=== PATIENT | male | born 1955 | race African-American/Black ===

== ENCOUNTER 2018-11-26 11:25 | Inpatient (IN) | payer OTHER ==
[2018-11-26 13:08] VITALS: BMI 22.9
--- NOTE | 2018-11-26 14:59 | HP ---
CIWA Score - Admission Criteria [facility] Guidelines: Admission for Medically Managed Detox: Requires at least one of the followin. CIWA greater than 12 2. Seizures within the past 24 hours 3. Delirium tremens within the past 24 hours 4. Hallucinations within the past 24 hours 5. Acute intervention needed for co occurring medical disorder 6. Acute intervention needed for co occurring psychiatric disorder 7. Severe withdrawal that cannot be handled at a lower level of care (continued vomiting, continued diarrhea, abnormal vital signs) requiring intravenous medication and/or fluids 8. Admission ROS S - HPI Chief Complaint: i need help to stop using opiate,on methadone maintenance 110mgs/day,last [id number]/01/19 Allergies/Adverse Reactions: Allergies Allergy/AdvReac Type Severity Reaction Status Date / Time No Known Allergies Allergy Verified 11/26/18 13:10 History of Present Illness: this 63 years old male with heroin dependence,mmtp 110mgs/day,last medicated 08/08,alco using marijuana patient has drug overdose on seen at [facility] has been trying to get help at [facility] and [facility] for fast 2 o3 days history of hypertension,old cva,surgery of both neck hiv since 1983 weight loss nicotine dependence 1/2 pack/day, anxiety,depression,insomnia for rehab - Ebola screening Have you traveled outside of the country in the last 21 days: No (N) Have you had contact with anyone from an Ebola affected area: No Do you have a fever: No - Review of Systems Constitutional: Malaise, Changes in sleep, Weakness, Unintentional Wgt. Loss EENT: reports: No Symptoms Reported Respiratory: reports: No Symptoms reported Cardiac: reports: No Symptoms Reported GI: reports: No Symptoms Reported : reports: No Symptoms Reported Musculoskeletal: reports: No Symptoms Reported Integumentary: reports: No Symptoms Reported Neuro: reports: No Symptoms reported Endocrine: reports: No Symptoms Reported Hematology: reports: Other (hiv) Psychiatric: reports: No Sypmtoms Reported, Anxious, Depressed, other (insomnia) Other Systems: Reviewed and Negative Patient History - Patient Medical History Hx Anemia: No Hx Asthma: No Hx Chronic Obstructive Pulmonary Disease (COPD): No Hx Cancer: No Hx Cardiac Disorders: No Hx Congestive Heart Failure: No Hx Hypertension: Yes (non compliance) Hx Hypercholesterolemia: Yes (non compliance) Hx Pacemaker: No HX Cerebrovascular Accident: Yes (could not recall how long) Hx Seizures: No Hx Dementia: No Hx Diabetes: No Hx Gastrointestinal Disorders: No Hx Liver Disease: No Hx Genitourinary Disorders: No Hx Sexually Transmitted Disorders: No Hx Renal Disease (ESRD): No Hx Thyroid Disease: No Hx Human Immunodeficiency Virus (HIV): Yes (adrian 1983) Hx Hepatitis C: No Hx Depression: Yes (anxiety) Hx Suicide Attempt: Yes (overdose 30 years ago) Hx Bipolar Disorder: No Hx Schizophrenia: No Other Medical History: no suicidal,no homicidal - Patient Surgical History Past Surgical History: Yes Other Surgical History: removal of masses of neck 23 years ago was told benign - PPD History Previous Implant?: Yes Documented Results: Negative w/o proof Implanted On Prior [facility] Admission?: No PPD to be Administered?: Yes - Smoking Cessation Smoking history: Current every day smoker Have you smoked in the past 12 months: Yes Aproximately how many cigarettes per day: 10 Hx Chewing Tobacco Use: No Initiated information on smoking cessation: Yes 'Breaking Loose' booklet given: 11/26/18 - Substance & Tx. History Hx Alcohol Use: Yes Hx Substance Use: Yes Substance Use Type: Alcohol, Heroin, Marijuana Hx Substance Use Treatment: Yes ([facility] 11/06) - Substances abused Heroin Substance route: Injection Frequency: 1-3 times last 30 days Amount used: 1 bag Age of first use: 33 Date of last use: 11/25/18 Alcohol Substance route: Oral Frequency: 1-2 times per week Amount used: 1/2 pint of vodaka/2 cans 12 ozs of beer Age of first use: 21 Date of last use: 11/18/18 Marijuana/Hashish Substance route: Smoking Frequency: 1-3 times last 30 days Amount used: 5$ Age of first use: 18 Date of last use: 11/18/18 Family Disease History - Family Disease History Family Disease History: Other: Father (no contact), Mother (alchol,dsa) Admission Physical Exam S - Vital Signs Vital Signs: Vital Signs - 24 hr 11/26/18 13:01 Temperature 97.3 F L Pulse Rate 67 Respiratory 19 Rate Blood Pressure 114/72 - Physical General Appearance: Yes: Within Normal Limits HEENTM: Yes: Normal ENT Inspection, RASHID, Pharynx Normal, Other (scar both necks ) Respiratory: Yes: Lungs Clear, Normal Breath Sounds, No Respiratory Distress Neck: Yes: Within Normal Limits, Supple, Trachea in good position Breast: Yes: Within Normal Limits Cardiology: Yes: Within Normal Limits, Regular Rhythm, Regular Rate, S1, S2 Abdominal: Yes: Within Normal Limits, Normal Bowel Sounds, Non Tender, Soft Genitourinary: Yes: Within Normal Limits Back: Yes: Within Normal Limits Musculoskeletal: Yes: Muscle Pain Extremities: Yes: Within Normal Limits 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 intact, Fully Oriented, Alert, Motor Strength 5/5 Integumentary: Yes: Within Normal Limits Lymphatic: Yes: Within Normal Limits - Diagnostic (1) Heroin dependence Current Visit: Yes Status: Acute (2) Alcohol abuse Current Visit: Yes Status: Acute (3) Cannabis abuse Current Visit: Yes Status: Acute (4) Methadone maintenance therapy patient Current Visit: Yes Status: Acute (5) Essential hypertension Current Visit: Yes Status: Acute (6) Hypercholesterolemia Current Visit: Yes Status: Acute (7) Insomnia secondary to depression with anxiety Current Visit: Yes Status: Acute (8) Weight loss Current Visit: Yes Status: Acute (9) History of drug overdose Current Visit: Yes Status: Acute (10) HIV (human immunodeficiency virus infection) Current Visit: Yes Status: Acute (11) Nicotine dependence Current Visit: Yes Status: Acute Cleared for Admission [facility] - Detox or Rehab Claeared for Rehab Admission: Yes Breathalyzer - Breathalyzer Breathalyzer: 0 Urine Drug Screen - Test Device Lot number: [id number] Expiration date: 08/19/20 - Control Is test valid?: Yes - Results Drug screen NEGATIVE: No Urine drug screen results: THC-Marijuana, FEN-Fentanyl, MOP-Opiates, MTD- Methadone, BZO-Benzodiazepines Inpatient Rehab Admission - Rehab Decision to Admit Inpatient rehab admission?: Yes - Initial Determination Are CD services needed?: Yes Free of communicable disease: Yes Not in need of hospitalization: Yes - Rehab Admission Criteria Previous failed treatment: Yes Poor recovery environment: Yes Comorbidities: Yes Lacks judgement: No Patient is meeting Inpatient Rehab admission criteria:: Yes
[2018-11-26] MEDS ORDERED: MAGNESIUM CITRATE 300 ML BOTTLE PO PRN (15:18)
[2018-11-26] MEDS ORDERED: MAG HYDROX/AL HYDROX/SIMETH 30 ML UNIT-DOSE CUP PO PRN (15:18)
[2018-11-26] MEDS ORDERED: ACETAMINOPHEN 325 MG TABLET (FP) PO PRN (15:18)
[2018-11-26] MEDS ORDERED: MENTHOL/PHENOL 1 EACH UD MM PRN (15:18)
[2018-11-26] MEDS ORDERED: LOPERAMIDE HCL 2 MG CAPSULE PO PRN (15:18)
[2018-11-26] MEDS ORDERED: hydrOXYzine PAMOATE 25 MG CAPSULE (FP) PO PRN (15:18)
[2018-11-26] MEDS ORDERED: MAGNESIUM HYDROX 2400MG/30ML ORAL SUSPENSION 30 ML CUP PO PRN (15:18)
[2018-11-26] MEDS ORDERED: IBUPROFEN 400 MG TABLET (FP) PO PRN (15:18)
[2018-11-26] MEDS ORDERED: P-EPHED 60MG/TRIPROLIDI 2.5MG TABLET PO PRN (15:18)
[2018-11-26] MEDS ORDERED: guaiFENesin 200 MG/10 ML 10 ML UNIT-DOSE CUPS PO PRN (15:18)
[2018-11-26] MEDS ORDERED: METHADONE HCL 40 MG DISPERSABLE TABLET PO ONE (15:30)
[2018-11-26] MEDS ORDERED: TUBERCULIN PPD 5 TU/0.1ML VIAL ID ONE (16:29)
--- NOTE | 2018-11-26 17:19 | EKG ---
Test Reason : Blood Pressure : / mmHG Vent. Rate : 063 BPM Atrial Rate : 063 BPM P-R Int : 188 ms QRS Dur : 094 ms QT Int : 408 ms P-R-T Axes : 069 040 032 degrees QTc Int : 417 ms NORMAL SINUS RHYTHM MINIMAL VOLTAGE CRITERIA FOR LVH, MAY BE NORMAL VARIANT CANNOT RULE OUT ANTERIOR INFARCT , AGE UNDETERMINED ABNORMAL ECG WHEN COMPARED WITH ECG OF 03-NOV-2003 15:44, NONSPECIFIC T WAVE ABNORMALITY NO LONGER EVIDENT IN ANTEROLATERAL LEADS Confirmed by JOSEPHINE BROWN MD ([id number]) on 11/26/2018 5:19:33 PM Referred By: Confirmed By:JOSEPHINE BROWN MD
[2018-11-26] MEDS: MELATONIN 5 MG TABLETS PO PRN (21:29)
[2018-11-26] MEDS: THIAMINE HCL 100 MG TABLET (FP) PO SCH (21:29)
[2018-11-26 23:22] LABS: URINE APPEARANCE CLEAR; URINE BILIRUBIN NEGATIVE (NEGATIVE); URINE COLOR YELLOW; URINE GLUCOSE (UA) NEGATIVE (NEGATIVE); URINE KETONE NEGATIVE (NEGATIVE); URINE LEUK ESTERASE NEGATIVE (NEGATIVE); URINE NITRITE NEGATIVE (NEGATIVE); URINE PROTEIN NEGATIVE (NEGATIVE)
[2018-11-27] MEDS ORDERED: METHADONE HCL 10 MG TABLET PO ONE (06:00)
[2018-11-27] MEDS ORDERED: METHADONE 40 MG, METHADONE 10 MG PO ONE (06:00)
[2018-11-27] MEDS ORDERED: METHADONE HCL 40 MG DISPERSABLE TABLET PO ONE (06:00)
[2018-11-27] MEDS ORDERED: METHADONE HCL 40 MG DISPERSABLE TABLET ONE (06:07)
[2018-11-27] MEDS ORDERED: METHADONE HCL 10 MG TABLET ONE (06:07)
[2018-11-27 10:03] LABS: HEMATOCRIT 37.8 % (35.4-49); HEMOGLOBIN 11.6 GM/dL (11.7-16.9); MCHC 30.8 g/dl (32.0-35.9); MEAN CELL VOLUME 74.5 fl (80-96); MEAN PLT VOLUME 8.4 fl (7.5-11.1); PLATELET COUNT 180 K/MM3 (134-434); RBC 5.07 M/mm3 (4.00-5.60); RDW 14.8 % (11.9-15.9); WHITE BLOOD COUNT 3.2 K/mm3 (4.0-10.0)
[2018-11-27] MEDS: SULFAMETHOXAZOLE/TRIMETHOPRIM 800MG/160MG D.S. TABLET PO SCH (10:08)
[2018-11-27] MEDS: PRENATAL VITAMINS W/ FOLIC ACID TABLET (FP) PO SCH (10:08)
[2018-11-27] MEDS: ENALAPRIL MALEATE 10 MG TABLET (FP) PO SCH (10:08)
[2018-11-27 10:22] LABS: ALBUMIN 3.1 g/dl (3.4-5.0); BILIRUBIN,TOTAL 0.4 mg/dL (0.2-1); CALCIUM 8.8 mg/dL (8.5-10.1); CREATININE 1.3 mg/dL (0.55-1.3); POTASSIUM 4.2 mmol/L (3.5-5.1); TOT PROT 8.2 g/dl (6.4-8.2)
--- NOTE | 2018-11-27 16:40 | CONSULT ---
[facility] Psychiatric Consult - Data Date of interview: 11/27/18 Admission source: [facility] Identifying data: Direct admission to [address] for this 63 y/o AA male , self-referred for rehabilitation treatment addressing opioid, cannabis, alcohol dependence co-morbid with mood dysregulation. Patient is , a father of seven, domiciled, unemployed and supported on SSI benefits. Substance Abuse History: Confirmed by the patient in this interview. Details in current [facility] report as follows : Smoking history: Current every day smoker. Have you smoked in the past 12 months: Yes. Aproximately how many cigarettes per day: 10. Hx Chewing Tobacco Use: No. Initiated information on smoking cessation: Yes. 'Breaking Loose' booklet given: 11/26/18. - Substance & Tx. History. Hx Alcohol Use: Yes. Hx Substance Use: Yes. Substance Use Type: Alcohol, Heroin, Marijuana. Hx Substance Use Treatment: Yes ([facility] ). - Substances abused. Heroin. Substance route: Injection. Frequency: 1-3 times last 30 days. Amount used: 1 bag. Age of first use: 33. Date of last use: 11/25/18. Alcohol. Substance route: Oral. Frequency: 1-2 times per week. Amount used: 1/2 pint of vodaka/2 cans 12 ozs of beer. Age of first use: 21. Date of last use: 11/18/18. Marijuana/Hashish. Substance route: Smoking. Frequency: 1-3 times last 30 days. Amount used: 5$. Age of first use : 18. Date of last use: 11/18/18 Medical History: Remarkable for HIV infection since 1983, history of CVA, hypertension and hypercholesterolemia. Patient reports a recent overdose (few days ago) with fentanyl (accidental as per self-report). Treated at [facility]. Psychiatric History: No reported history of psychiatric hospitalizations. Patient denies history of exposure to prescribed psychotropic medications. No antecedent of psychiatric OPD care. Mr Victor denies history of suicide attempts. Currently receiving methadone maintenance (110 mg/day) at a [facility] program in [facility]. Physical/Sexual Abuse/Trauma History: No reported history of abuse. Additional Comment: Urine drug screen results: THC-Marijuana, FEN-Fentanyl, MOP- Opiates, MTD-Methadone, BZO-Benzodiazepines. Noted. Mental Status Exam - Mental Status Exam Alert and Oriented to: Time, Place, Person Cognitive Function: Good Patient Appearance: Well Groomed Mood: Nervous (mildly anxious), Hopeful Affect: Appropriate, Normal Range Patient Behavior: Appropriate, Cooperative Speech Pattern: Clear, Appropriate Voice Loudness: Normal Thought Process: Goal Oriented Thought Disorder: Not Present Hallucinations: Denies Suicidal Ideation: Denies Homicidal Ideation: Denies Insight/Judgement: Fair Sleep: Fair Appetite: Good Muscle strength/Tone: Normal Gait/Station: Normal Psychiatric Findings - Problem List ([place] 1, 2,3) (1) Opioid dependence on agonist therapy Current Visit: Yes Status: Chronic (2) Alcohol abuse Current Visit: Yes Status: Chronic (3) Cannabis abuse Current Visit: Yes Status: Chronic (4) Nicotine dependence Current Visit: Yes Status: Chronic (5) Substance induced mood disorder Current Visit: Yes Status: Chronic - Initial Treatment Plan Initial Treatment Plan: Psychoeducation. Sleep hygiene. Support. Groups. AA/NA meetings. Tools for relapse prevention (MAT) discussed with patient. Motivational counseling. Observation.
[2018-11-27] MEDS: THIAMINE HCL 100 MG TABLET (FP) PO SCH (21:07)
[2018-11-27] MEDS: MELATONIN 5 MG TABLETS PO PRN (21:07)
[2018-11-28] MEDS ORDERED: METHADONE HCL 10 MG TABLET ONE (05:28)
[2018-11-28] MEDS ORDERED: METHADONE HCL 40 MG DISPERSABLE TABLET ONE (05:28)
[2018-11-28] MEDS ORDERED: METHADONE HCL 10 MG TABLET PO ONE (06:00)
[2018-11-28] MEDS ORDERED: METHADONE 40 MG, METHADONE 20 MG PO ONE (06:00)
[2018-11-28] MEDS: ENALAPRIL MALEATE 10 MG TABLET (FP) PO SCH (10:24)
[2018-11-28] MEDS: SULFAMETHOXAZOLE/TRIMETHOPRIM 800MG/160MG D.S. TABLET PO SCH (10:24)
[2018-11-28] MEDS: PRENATAL VITAMINS W/ FOLIC ACID TABLET (FP) PO SCH (10:24)
[2018-11-28] MEDS: THIAMINE HCL 100 MG TABLET (FP) PO SCH (21:44)
[2018-11-28] MEDS: MELATONIN 5 MG TABLETS PO PRN (21:44)
[2018-11-29] MEDS ORDERED: METHADONE HCL 10 MG TABLET ONE (05:25)
[2018-11-29] MEDS ORDERED: METHADONE HCL 40 MG DISPERSABLE TABLET ONE (05:25)
[2018-11-29] MEDS ORDERED: METHADONE 40 MG, METHADONE 30 MG PO ONE (06:00)
[2018-11-29] MEDS ORDERED: METHADONE HCL 10 MG TABLET PO ONE (06:00)
[2018-11-29] MEDS: SULFAMETHOXAZOLE/TRIMETHOPRIM 800MG/160MG D.S. TABLET PO SCH (10:36)
[2018-11-29] MEDS: PRENATAL VITAMINS W/ FOLIC ACID TABLET (FP) PO SCH (10:36)
[2018-11-29] MEDS: ENALAPRIL MALEATE 10 MG TABLET (FP) PO SCH (10:36)
[2018-11-29] MEDS: MELATONIN 5 MG TABLETS PO PRN (21:16)
[2018-11-29] MEDS: THIAMINE HCL 100 MG TABLET (FP) PO SCH (21:16)
[2018-11-30] MEDS ORDERED: METHADONE HCL 40 MG DISPERSABLE TABLET PO ONE (06:00)
[2018-11-30] MEDS: ENALAPRIL MALEATE 10 MG TABLET (FP) PO SCH (10:58)
[2018-11-30] MEDS: SULFAMETHOXAZOLE/TRIMETHOPRIM 800MG/160MG D.S. TABLET PO SCH (10:58)
[2018-11-30] MEDS: PRENATAL VITAMINS W/ FOLIC ACID TABLET (FP) PO SCH (10:58)
[2018-11-30] MEDS: THIAMINE HCL 100 MG TABLET (FP) PO SCH (21:31)
[2018-11-30] MEDS: MELATONIN 5 MG TABLETS PO PRN (21:32)
[2018-12-01] MEDS ORDERED: METHADONE 80 MG, METHADONE 10 MG PO ONE (06:00)
[2018-12-01] MEDS ORDERED: METHADONE HCL 10 MG TABLET PO ONE (06:00)
[2018-12-01] MEDS ORDERED: METHADONE HCL 40 MG DISPERSABLE TABLET ONE (06:03)
[2018-12-01] MEDS ORDERED: METHADONE HCL 10 MG TABLET ONE (06:03)
[2018-12-01] MEDS: PRENATAL VITAMINS W/ FOLIC ACID TABLET (FP) PO SCH (10:25)
[2018-12-01] MEDS: SULFAMETHOXAZOLE/TRIMETHOPRIM 800MG/160MG D.S. TABLET PO SCH (10:25)
[2018-12-01] MEDS: ENALAPRIL MALEATE 10 MG TABLET (FP) PO SCH (10:25)
[2018-12-01] MEDS ORDERED: HYDROCHLOROTHIAZIDE 25 MG TABLET (FP) PO ONE (16:30)
[2018-12-01] MEDS: THIAMINE HCL 100 MG TABLET (FP) PO SCH (21:14)
[2018-12-01] MEDS: MELATONIN 5 MG TABLETS PO PRN (21:14)
[2018-12-02] MEDS ORDERED: METHADONE HCL 10 MG TABLET ONE (04:59)
[2018-12-02] MEDS ORDERED: METHADONE HCL 40 MG DISPERSABLE TABLET ONE (04:59)
[2018-12-02] MEDS ORDERED: PT OWN MED DRAWER 7, Y5N ONE (05:00)
[2018-12-02] MEDS ORDERED: METHADONE HCL 10 MG TABLET PO ONE (06:00)
[2018-12-02] MEDS ORDERED: METHADONE 80 MG, METHADONE 20 MG PO ONE (06:00)
[2018-12-02] MEDS: EMTRICITAB/RILPIVIRI/TENOF ALA (ODEFSEY) TABLET PO SCH (07:09)
--- NOTE | 2018-12-02 08:25 | PN ---
[facility] Progress Note (SOAP) Subjective: Called to see patient who became stuporous after he received his morning methadone dose of 100 mg. Admitted yesterday; his urine toxicology was positive for marijuan, fentynl, opiates, methadone, and benzodiazipines. Objective: BP before morning dose of methadone wa 141/69, Pulse-71. After dose, when he became stuporous, his BP was 143/74, Pulse-72, oxygen was 93%, blood sugar was 108. 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 There were tremors of both hands. 12/02/18 08:33 CBC, BMP 11/27/18 08:10 11/27/18 08:10 Vital Signs Period Temp Pulse Resp BP Sys/Gomez Pulse Ox Last 24 Hr 98.0 F-98.7 F 64-66 18-20 137-142/67-75 Assessment: Dx: Stuporous condition. 12/02/18 08:36 Plan: Patient placed on 1; 1 observation, vital signs every 2 hours. Urine toxicology. Will continue to monitor.
[2018-12-02] MEDS: SULFAMETHOXAZOLE/TRIMETHOPRIM 800MG/160MG D.S. TABLET PO SCH (10:05)
[2018-12-02] MEDS: ENALAPRIL MALEATE 10 MG TABLET (FP) PO SCH (10:06)
[2018-12-02] MEDS: PRENATAL VITAMINS W/ FOLIC ACID TABLET (FP) PO SCH (10:06)
--- NOTE | 2018-12-02 17:31 | PN ---
[facility] Progress Note (SOAP) Subjective: patient continues to be stuporous. See previous note for further details. Has a past medical hx of overdose earlier this month. Objective: Vital signs remain stable, o2 saturation > 95%, respirations 12-16. However, he is still difficult to arouse. UTOX was positive only for methadone. 12/02/18 17:27 Vital Signs (72 hours) 11/30/18 11/30/18 11/30/18 00:30 03:30 07:20 Temperature 98.0 F Pulse Rate 62 Respiratory 18 18 18 Rate Blood Pressure 141/71 11/30/18 12/01/18 12/01/18 10:02 00:30 03:30 Temperature 97.6 F Pulse Rate 70 Respiratory 16 18 18 Rate Blood Pressure 117/60 12/01/18 12/01/18 12/02/18 07:15 09:40 00:30 Temperature 97.9 F 98.0 F Pulse Rate 64 66 Respiratory 18 18 20 Rate Blood Pressure 147/85 137/67 12/02/18 12/02/18 12/02/18 03:30 06:50 10:00 Temperature 98.7 F Pulse Rate 64 71 Respiratory 18 18 20 Rate Blood Pressure 142/75 141/69 12/02/18 17:31 Assessment: stuporous, possibly related to Methadone dose. 12/02/18 17:28 Plan: Holding AM dose of methadone. Will re-assess in AM and possibly start at 30mg dose of methadone, then increase as tolerated.
[2018-12-02] MEDS: THIAMINE HCL 100 MG TABLET (FP) PO SCH (21:10)
[2018-12-03] MEDS ORDERED: METHADONE 80 MG, METHADONE 30 MG PO SCH (06:00)
[2018-12-03] MEDS ORDERED: METHADONE HCL 40 MG DISPERSABLE TABLET PO SCH (06:00)
[2018-12-03] MEDS: EMTRICITAB/RILPIVIRI/TENOF ALA (ODEFSEY) TABLET PO SCH (07:32)
--- NOTE | 2018-12-03 09:22 | PN ---
S Progress Note (SOAP) Subjective: Patient today is awake, alert, and oriented; walking around unit on his own and eating. Yesterday, patient was stuporous and could only be aroused with a chest rub and could not stay awake. He spent the day in bed in 1:1 observation. Objective: Patient is no longer stuporous. 12/03/18 09:10 Lab Results WBC 3.2 K/mm3 (4.0-10.0) L 11/27/18 08:10 RBC 5.07 M/mm3 (4.00-5.60) 11/27/18 08:10 Hgb 11.6 GM/dL (11.7-16.9) L 11/27/18 08:10 Hct 37.8 % (35.4-49) 11/27/18 08:10 MCV 74.5 fl (80-96) L 11/27/18 08:10 MCHC 30.8 g/dl (32.0-35.9) L 11/27/18 08:10 RDW 14.8 % (11.9-15.9) 11/27/18 08:10 Plt Count 180 K/MM3 (134-434) 11/27/18 08:10 Sodium 134 mmol/L (136-145) L 11/27/18 08:10 Potassium 4.2 mmol/L (3.5-5.1) 11/27/18 08:10 Chloride 101 mmol/L (98-107) 11/27/18 08:10 Carbon Dioxide 27 mmol/L (21-32) 11/27/18 08:10 Anion Gap 7 MMOL/L (8-16) L 11/27/18 08:10 BUN 29 mg/dL (7-18) H 11/27/18 08:10 Creatinine 1.3 mg/dL (0.55-1.3) 11/27/18 08:10 Random Glucose 110 mg/dL (74-106) H 11/27/18 08:10 Calcium 8.8 mg/dL (8.5-10.1) 11/27/18 08:10 Vital Signs - 24 hr 12/02/18 12/02/18 12/03/18 10:00 17:30 00:15 Temperature 98.8 F 97.2 F L Pulse Rate 71 61 65 Respiratory 20 18 18 Rate Blood Pressure 141/69 135/70 127/62 O2 Sat by Pulse 97 Oximetry (%) 12/03/18 12/03/18 12/03/18 03:30 04:00 06:00 Temperature 99.6 F 98.2 F Pulse Rate 69 68 Respiratory 18 18 18 Rate Blood Pressure 148/73 140/73 O2 Sat by Pulse 97 94 L Oximetry (%) 12/03/18 07:03 Temperature 98.2 F Pulse Rate 68 Respiratory 18 Rate Blood Pressure 140/73 O2 Sat by Pulse Oximetry (%) Assessment: over-sedation from methadone has resolved. 12/03/18 09:12 Plan: Methadone maintenance dose reduced to 30mg. Will titrate as needed and monitor patient. Discussed plan with patient who is in agreement.
[2018-12-03] MEDS: SULFAMETHOXAZOLE/TRIMETHOPRIM 800MG/160MG D.S. TABLET PO SCH (10:08)
[2018-12-03] MEDS: METHADONE HCL 10 MG TABLET PO SCH (10:08)
[2018-12-03] MEDS: PRENATAL VITAMINS W/ FOLIC ACID TABLET (FP) PO SCH (10:08)
[2018-12-03] MEDS: ENALAPRIL MALEATE 10 MG TABLET (FP) PO SCH (10:08)
[2018-12-03] MEDS: MELATONIN 5 MG TABLETS PO PRN (21:46)
[2018-12-03] MEDS: THIAMINE HCL 100 MG TABLET (FP) PO SCH (21:46)
[2018-12-04] MEDS: METHADONE HCL 10 MG TABLET PO SCH (06:19)
[2018-12-04] MEDS: EMTRICITAB/RILPIVIRI/TENOF ALA (ODEFSEY) TABLET PO SCH (07:11)
[2018-12-04] MEDS: SULFAMETHOXAZOLE/TRIMETHOPRIM 800MG/160MG D.S. TABLET PO SCH (10:50)
[2018-12-04] MEDS: PRENATAL VITAMINS W/ FOLIC ACID TABLET (FP) PO SCH (10:50)
[2018-12-04] MEDS: ENALAPRIL MALEATE 10 MG TABLET (FP) PO SCH (10:50)
[2018-12-04] MEDS: THIAMINE HCL 100 MG TABLET (FP) PO SCH (21:18)
[2018-12-04] MEDS: MELATONIN 5 MG TABLETS PO PRN (21:18)
[2018-12-05] MEDS: METHADONE HCL 10 MG TABLET PO SCH (06:22)
[2018-12-05] MEDS: EMTRICITAB/RILPIVIRI/TENOF ALA (ODEFSEY) TABLET PO SCH (07:49)
[2018-12-05] MEDS: ENALAPRIL MALEATE 10 MG TABLET (FP) PO SCH (10:26)
[2018-12-05] MEDS: PRENATAL VITAMINS W/ FOLIC ACID TABLET (FP) PO SCH (10:26)
[2018-12-05] MEDS: SULFAMETHOXAZOLE/TRIMETHOPRIM 800MG/160MG D.S. TABLET PO SCH (10:27)
[2018-12-05] MEDS: THIAMINE HCL 100 MG TABLET (FP) PO SCH (21:19)
[2018-12-05] MEDS: MELATONIN 5 MG TABLETS PO PRN (21:19)
[2018-12-06] MEDS: METHADONE HCL 10 MG TABLET PO SCH (06:11)
[2018-12-06] MEDS: EMTRICITAB/RILPIVIRI/TENOF ALA (ODEFSEY) TABLET PO SCH (08:09)
[2018-12-06] MEDS: ENALAPRIL MALEATE 10 MG TABLET (FP) PO SCH (09:25)
[2018-12-06] MEDS: SULFAMETHOXAZOLE/TRIMETHOPRIM 800MG/160MG D.S. TABLET PO SCH (09:25)
[2018-12-06] MEDS: PRENATAL VITAMINS W/ FOLIC ACID TABLET (FP) PO SCH (09:25)
[2018-12-06] MEDS: MELATONIN 5 MG TABLETS PO PRN (21:03)
[2018-12-06] MEDS: THIAMINE HCL 100 MG TABLET (FP) PO SCH (21:03)
[2018-12-07] MEDS: METHADONE HCL 10 MG TABLET PO SCH (06:03)
[2018-12-07] MEDS: EMTRICITAB/RILPIVIRI/TENOF ALA (ODEFSEY) TABLET PO SCH (07:31)
[2018-12-07] MEDS: PRENATAL VITAMINS W/ FOLIC ACID TABLET (FP) PO SCH (10:27)
[2018-12-07] MEDS: ENALAPRIL MALEATE 10 MG TABLET (FP) PO SCH (10:27)
[2018-12-07] MEDS: SULFAMETHOXAZOLE/TRIMETHOPRIM 800MG/160MG D.S. TABLET PO SCH (10:27)
[2018-12-07] MEDS: THIAMINE HCL 100 MG TABLET (FP) PO SCH (21:32)
[2018-12-07] MEDS: MELATONIN 5 MG TABLETS PO PRN (21:32)
[2018-12-08] MEDS: METHADONE HCL 10 MG TABLET PO SCH (06:17)
[2018-12-08] MEDS: EMTRICITAB/RILPIVIRI/TENOF ALA (ODEFSEY) TABLET PO SCH (07:04)
[2018-12-08] MEDS: ENALAPRIL MALEATE 10 MG TABLET (FP) PO SCH (09:51)
[2018-12-08] MEDS: PRENATAL VITAMINS W/ FOLIC ACID TABLET (FP) PO SCH (09:51)
[2018-12-08] MEDS: SULFAMETHOXAZOLE/TRIMETHOPRIM 800MG/160MG D.S. TABLET PO SCH (09:51)
[2018-12-08] MEDS: THIAMINE HCL 100 MG TABLET (FP) PO SCH (21:32)
[2018-12-08] MEDS: MELATONIN 5 MG TABLETS PO PRN (21:32)
[2018-12-09] MEDS: METHADONE HCL 10 MG TABLET PO SCH (06:18)
[2018-12-09] MEDS: EMTRICITAB/RILPIVIRI/TENOF ALA (ODEFSEY) TABLET PO SCH (07:00)
[2018-12-09] MEDS: ENALAPRIL MALEATE 10 MG TABLET (FP) PO SCH (10:27)
[2018-12-09] MEDS: PRENATAL VITAMINS W/ FOLIC ACID TABLET (FP) PO SCH (10:27)
[2018-12-09] MEDS: SULFAMETHOXAZOLE/TRIMETHOPRIM 800MG/160MG D.S. TABLET PO SCH (10:27)
--- NOTE | 2018-12-09 10:53 | PN ---
[facility] Progress Note (SOAP) Subjective: Patient to be discharged tomorrow. Objective: 12/09/18 10:49 CBC, BMP 11/27/18 08:10 11/27/18 08:10 Vital Signs (72 hours) 12/07/18 12/07/18 12/07/18 00:30 07:30 09:30 Temperature Pulse Rate 62 62 Respiratory 18 18 18 Rate Blood Pressure 142/79 148/70 12/08/18 12/08/18 12/08/18 00:30 03:30 06:50 Temperature 97.7 F Pulse Rate 60 Respiratory 18 18 18 Rate Blood Pressure 151/77 12/08/18 12/09/18 12/09/18 09:50 00:30 03:30 Temperature Pulse Rate 69 Respiratory 18 18 Rate Blood Pressure 154/71 12/09/18 12/09/18 07:10 09:30 Temperature 97.7 F Pulse Rate 59 L 68 Respiratory 18 18 Rate Blood Pressure 149/69 139/70 Assessment: Medically stable for discharge. Discharge Dx: Heroin abuse ETOH dependence, chronic Cananbis dependence, chronic HTN HIV Disease 12/09/18 10:51 Plan: Will be going to [facility] in [place] for aftercare. Has a primary care appointment in 1 week and will get his prescriptions renewed at that time.
[2018-12-09] MEDS: MELATONIN 5 MG TABLETS PO PRN (21:28)
[2018-12-09] MEDS: THIAMINE HCL 100 MG TABLET (FP) PO SCH (21:28)
[2018-12-10] MEDS ORDERED: METHADONE HCL 10 MG TABLET PO SCH (06:00)
[2018-12-10 07:09] VITALS: BP 148/78; PULSE 56; TEMP 97.9
[2018-12-10] MEDS: EMTRICITAB/RILPIVIRI/TENOF ALA (ODEFSEY) TABLET PO SCH (07:35)
[2018-12-10] MEDS ORDERED: PT OWN MED DRAWER 7, Y5N ONE (08:58)
== END 2018-12-10 09:10 | disposition home or self-care (01) | DRG 772 ==
LOC: YASAS 11:25 → Y3W 15:00
PROVIDERS: ADMIT Neuromusculoskeletal Medicine & OMM; ATTEND Neuromusculoskeletal Medicine & OMM
PROC: HZ42ZZZ Group Counseling for Substance Abuse Treatment, Cognitive-Behavioral (ICD-10-PCS; principal; 2018-11-26)
DX: F10.20 Alcohol dependence, uncomplicated (principal); F11.20 Opioid dependence, uncomplicated; F12.20 Cannabis dependence, uncomplicated; F17.210 Nicotine dependence, cigarettes, uncomplicated; F19.24 Other psychoactive substance dependence with psychoactive substance-induced mood disorder; F51.05 Insomnia due to other mental disorder; Z21 Asymptomatic human immunodeficiency virus [HIV] infection status; I10 Essential (primary) hypertension; E78.00 Pure hypercholesterolemia, unspecified; R63.4 Abnormal weight loss; Z68.23 Body mass index [BMI] 23.0-23.9, adult; Z86.73 Personal history of transient ischemic attack (TIA), and cerebral infarction without residual deficits; Z91.5 Personal history of self-harm
CPT/HCPCS: 36415; 80053; 81003; 82962; 85027; 86593; 93005; 93010